=== PATIENT | female | born 1985 | race Caucasian/White ===

== ENCOUNTER 2022-10-23 00:23 | Emergency (ER) | payer MEDICAID, SELFPAY ==
[2022-10-23 00:25] VITALS: BP 108/64; PULSE 92; RESP 16; TEMP 36.6; O2SAT 100; BMI 24.5
--- NOTE | 2022-10-23 00:47 | EDS_ITS ---
HPI HPI - URI History of Present Illness Chief Complaint: Cold Sx Informant: patient Onset/Context/Timing Onset: Days (3) Context: Gradual Onset Timing: Continuous Quality: Sharp, stabbing Location: Chest and left back Worsened by: - (Nothing) Relieved by: - (Nothing) Associated Symptoms Associated Symptoms: Positive for Nasal Congestion, Chest Pain and Nonproductive cough; Negative for Headache, Sinus Pressure, Myalgias, Nausea, Vomiting, Diarrhea, Shortness of Breath, Hemoptysis or Productive Cough Narrative Narrative: Patient presents with cough and congestion that has been getting worse over the past 3 days. Patient states she has sharp pain in her chest. Patient states it is worse with breathing. Patient admits to a cough but denies any sputum. Patient admits to some rhinorrhea and nasal congestion. Patient denies any headache. Patient denies any sinus pressure. Patient denies any shortness of breath. Patient denies any nausea, vomiting, and diarrhea. Patient states her pain does go into the left side of her back in the thoracic area. Patient admits to some subjective chills but denies any fevers. ROS ROS ED Constitutional Constitutional ED: Reports chills and subjective; Denies fever(s) Eyes Eyes: Denies blurry vision or change in vision ENT ENT ED: Reports rhinorrhea; Denies sore throat Cardiovascular Cardiovascular: Reports chest pain; Denies palpitations Respiratory/Chest Respiratory/Chest: Reports cough; Denies dyspnea Gastrointestinal Gastrointestinal: Denies nausea or vomiting Genitourinary Genitourinary ED: Denies dysuria or hematuria Musculoskeletal Musculoskeletal: Reports back pain; Denies neck pain Integumentary Denies abscess or rash Neurologic Neurologic: Denies headache(s) or weakness Allergic/Immunologic Allergic/Immunologic ED: Denies mouth swelling or urticaria PFSH PFSH Medical History no medical history no medical history Home Medications NK 10/23/22 [History Last Taken Unknown] Allergy/AdvReac Type Severity Reaction Status Date / Time amoxicillin Allergy Angioedema Verified 10/23/22 00:25 ranitidine [From Zantac] Allergy Rash Verified 10/23/22 00:25 codeine AdvReac Other Verified 10/23/22 00:25 Surgical History no surgical history no surgical history Social History Smoking Status: Current every day smoker tobacco type: cigarettes EXAM Physical Exam Const Vital Signs: 10/23/22 00:25 10/23/22 00:25 Temperature 97.9 F Temperature Source Temporal Pulse Rate 92 Respiratory Rate 16 Respiratory Pattern Normal Blood Pressure 108/64 Blood Pressure Mean 78 Pulse Ox 100 Positive well nourished and well developed General Appearance ED: well developed and NAD HEENT Reports moist mucous membranes Teeth and Gingiva: caries Throat: posterior oropharynx normal Eyes PERRL and EOMs intact bilaterally Neck supple and no JVD Resp normal respiratory effort and clear to auscultation bilaterally Cardio regular rate, regular rhythm and no murmurs GI normal to inspection, nondistended, normoactive bowel sounds and non-tender Palpation: soft Extremity normal to inspection General Extremety ED: Negative for edema or tenderness General Extremity: Negative for edema Neuro oriented x3, CN's II-XII intact bilaterally and no sensory deficits noted Sensorium / Orientation: alert Motor Exam: strength 5/5 throughout Psych mental status grossly normal Skin no rashes or lesions noted MDM MDM MDM Narrative Medical decision making narrative: Differential diagnosis includes viral upper respiratory infection, viral pharyngitis, bronchitis, pneumonia, COVID-19 infection, and influenza infection. Chest x-ray will be obtained to assess for pneumonia and pneumothorax. COVID- 19 rapid antigen will be obtained to assess for COVID-19 infection. Influenza A and influenza B antigens will be obtained to assess for influenza infection. Lab Data Attestation: I reviewed the patient's lab results. Lab results narrative: COVID-19 rapid antigen was reviewed and was negative. Influenza A and influenza B antigens were reviewed and were negative. Radiography Chest X-Ray - ED: 2 View, Read by ED Physician, Read by Radiologist and No Acute Disease Diagnostic Testing: Clinical Impression(s) from Imaging Studies Chest X-Ray 10/23/22 00:53 IMPRESSION: No evidence of active intrathoracic disease. Electronically Signed: Eugenia Barboza MD at 1:24 EDT , PA and lateral chest x-ray was obtained. There are 2 views. On my independent interpretation, lung denise are clear. There is normal cardiac silhouette. Bony thorax is normal. There is no acute process noted. Radiologist also interpreted the x-ray and agrees. Treatment and Re-Evaluation Narrative: Patient was advised of her findings. Patient was advised that this is most likely a viral upper respiratory infection. Patient was instructed to continue [id number] symptomatic treatments as needed. Patient was instructed to follow-up with her primary care physician in 5 to 7 days. Patient understood and was agreeable with the plan. All questions were answered. Discharge Plan Triage Chief Complaint: Cold Sx ED Provider: Chalo Skelton Dx/Rx/DC Orders Clinical Impression: Viral upper respiratory tract infection with cough, Tobacco use Instructions: ED URI, Viral, No Abx (Adult) Prescriptions: No Action NK Stand Alone Forms: ED Work / School Excuse Primary Care Provider: Care Physician,No Primary Referrals: NOT,DEFINED [Non-Staff] - 5-7 Days Disposition Disposition: Home, Self Care
--- NOTE | 2022-10-23 00:53 | RAD_ITS ---
INDICATION: Cough DYSPNEA FOR 4 DAYS EXAMINATION/TECHNIQUE: X-RAY - XR Chest 2 Views COMPARISON: FINDINGS: LINES/DEVICES: None. LUNGS: No consolidation. No pneumothorax. MEDIASTINUM: Unremarkable. CARDIAC SILHOUETTE: Not enlarged. BONES AND SOFT TISSUES: No acute abnormalities. Mild curvature of the spine. RAD/Chest PA and Lateral IMPRESSION: No evidence of active intrathoracic disease. Electronically Signed: Eugenia Barboza MD at 1:24 EDT ,
== END 2022-10-23 01:37 | disposition home or self-care (01) ==
PROVIDERS: Emergency Provider Emergency Medicine; Visit Provider Emergency Medicine
DX: J06.9 Acute upper respiratory infection, unspecified (principal); F17.210 Nicotine dependence, cigarettes, uncomplicated; R05.9 Cough, unspecified
CPT/HCPCS: 71046; 87428; 99282